=== PATIENT | female | born 1950 | race Caucasian/White ===

== ENCOUNTER 2024-01-27 18:13 | Emergency (ER) | payer MEDICARE, OTHER ==
[2024-01-27 18:26] VITALS: TEMP 98.3
--- NOTE | 2024-01-27 18:50 | ED ---
Upper Extremity HPI - General Chief Complaint: Extremity Injury, Upper Stated Complaint: fell L arm injury Time Seen by Provider: 01/27/24 18:33 Source: patient, RN notes reviewed Mode of arrival: ambulatory Limitations: no limitations - History of Present Illness Initial Comments: 73-year-old female presenting for left arm injury status post mechanical fall 1 hour ago. States she tripped over some boxes on the floor and landed on her left upper arm and felt immediate pain. States she did hit her head on the tile as well but denies loss of consciousness. States she has a small bruise on her left scientologist but denies any headache, nausea, vomiting. Denies other injuries. Takes daily aspirin however denies blood thinners. Rates her pain an 8 out of 10 currently. - Related Data Home Medications Medication Instructions Recorded Confirmed Olmesartan/Hydrochlorothiazide 1 each PO DAILY 03/13/15 03/13/15 [Benicar Hct 20-12.5 mg Tablet] Allergies Allergy/AdvReac Type Severity Reaction Status Date / Time erythromycin base Allergy Unknown Verified 03/13/15 10:23 latex Allergy Unknown Verified 03/13/15 10:23 monosodium glutamate [MSG] Allergy Unknown Verified 03/13/15 10:23 Penicillins Allergy Unknown Verified 03/13/15 10:23 Sulfa (Sulfonamide Allergy Unknown Verified 03/13/15 10:23 Antibiotics) tree nut [Nut] Allergy Unknown Verified 03/13/15 10:23 Review of Systems ROS Statement: Those systems with pertinent positive or pertinent negative responses have been documented in the HPI. ROS Other: All systems not noted in ROS Statement are negative. Past Medical History Past Medical History: Hypertension Additional Past Medical History / Comment(s): fractured arm History of Any Multi-Drug Resistant Organisms: None Reported Past Surgical History: Hysterectomy, Tonsillectomy Additional Past Surgical History / Comment(s): cystocel rectocel Past Psychological History: Anxiety Past Alcohol Use History: None Reported Past Drug Use History: None Reported General Exam Limitations: no limitations General appearance: alert, in no apparent distress Head exam: Present: atraumatic, normocephalic. Absent: normal inspection (Mild contusion over left scientologist with mild tenderness to palpation. No active bleeding) Eye exam: Present: normal appearance, PERRL, EOMI. Absent: scleral icterus, conjunctival injection, periorbital swelling ENT exam: Present: normal exam, mucous membranes moist, TM's normal bilaterally Neck exam: Present: normal inspection. Absent: tenderness, meningismus, lymphadenopathy Respiratory exam: Present: normal lung sounds bilaterally. Absent: respiratory distress, wheezes, rales, rhonchi, stridor Cardiovascular Exam: Present: regular rate, normal rhythm, normal heart sounds. Absent: systolic murmur, diastolic murmur, rubs, gallop, clicks Left Shoulder Exam: Present: normal inspection, full ROM. Absent: tenderness, swelling Upper Arm exam: Present: normal inspection, tenderness (Moderate tenderness over shaft of humerus). Absent: full ROM (Limited range of motion due to pain), swelling, laceration Elbow exam: Present: normal inspection, full ROM. Absent: tenderness, swelling Forearm Wrist exam: Present: normal inspection, full ROM. Absent: tenderness, swelling Hand Wrist exam: Present: normal inspection, full ROM. Absent: tenderness, swelling Vascular: Present: normal capillary refill. Absent: vascular compromise (Full sensation and radial pulses to bilateral upper extremities) Course Vital Signs 01/27/24 01/27/24 18:20 23:26 Temperature 98.3 F Pulse Rate 92 89 Respiratory 18 16 Rate Blood Pressure 156/77 139/71 O2 Sat by Pulse 98 98 Oximetry Medical Decision Making - Medical Decision Making Was pt. sent in by a medical professional or institution ([facility]IL[facility]ard, CLAIM PROCESSOR, urgent care, hospital, or longterm...) When possible be specific @ -No Did you speak to anyone other than the patient for history (EMS, parent, family, police, friend...)? What history was obtained from this source @ -No Did you review nursing and triage notes (agree or disagree)? Why? @ -I reviewed and agree with nursing and triage notes Were old charts reviewed (outside hosp., previous admission, EMS record, old EKG, old radiological studies, urgent care reports/EKG's, longterm records)? Report findings @ -No old charts were reviewed Differential Diagnosis (chest pain, altered mental status, abdominal pain women, abdominal pain men, vaginal bleeding, weakness, fever, dyspnea, syncope, headache, dizziness, GI bleed, back pain, seizure, CVA, palpatations, mental health, musculoskeletal)? @ -Differential Musculoskeletal Muscular strain, contusion, ligament sprain, fracture, arthritis, septic arthritis, bursitis, cellulitis, muscle spasm, nerve compression, DVT, arterial occlusion, herpes zoster, electrolyte abnormality, tumor.... This is not meant to be in all inclusive list EKG interpreted by me (3pts min.). @ -None X-rays interpreted by me (1pt min.). @ -X-ray of left humerus reveals acute fracture of the proximal left humerus with mild displacement, no dislocation CT interpreted by me (1pt min.). @ -None done U/S interpreted by me (1pt. min.). @ -None done What testing was considered but not performed or refused? (CT, X-rays, U/S, labs)? Why? @ -None What meds were considered but not given or refused? Why? @ -None Did you discuss the management of the patient with other professionals (professionals i.e. , PA, CLAIM PROCESSOR, lab, RT, psych nurse, licensed master social worker, lawyer real estate, teacher, fire control officer, vocational case manager)? Give summary @ -No Was smoking cessation discussed for >3mins.? @ -No Was critical care preformed (if so, how long)? @ -No Were there social determinants of health that impacted care today? How? (Homelessness, low income, unemployed, alcoholism, drug addiction, transportation, low edu. Level, literacy, decrease access to med. care, longterm, rehab)? @ -No Was there de-escalation of care discussed even if they declined (Discuss DNR or withdrawal of care, Hospice)? DNR status @ -No What co-morbidities impacted this encounter? (DM, HTN, Smoking, COPD, CAD, Cancer, CVA, ARF, Chemo, Hep., AIDS, mental health diagnosis, sleep apnea, morbid obesity)? @ -None Was patient admitted / discharged? Hospital course, mention meds given and route, prescriptions, significant lab abnormalities, going to OR and other pertinent info. @ -Patient was discharged. Patient was seen and evaluated for left upper arm injury after mechanical fall. Patient is neurovascularly intact. CT scan of head and neck performed due to patient hit head, revealed no acute intracranial abnormality or cervical fracture. X-ray of left shoulder reveals acute fracture of proximal left humerus with mild displacement but no dislocation. Patient given Tylenol threes for pain control. Patient was provided with sling. Discussed follow-up with Ortho in 1 to 3 days. Strict return/alarm symptoms discussed with patient in detail and she shows understanding and agrees to plan. Case discussed with my attending Dr. Garcia. Patient discharged in stable condition. Undiagnosed new problem with uncertain prognosis? @ -No Drug Therapy requiring intensive monitoring for toxicity (Heparin, Nitro, Insulin, Cardizem)? @ -No Were any procedures done? @ -No Diagnosis/symptom? @ -Acute fracture of proximal left humerus Acute, or Chronic, or Acute on Chronic? @ -Acute Uncomplicated (without systemic symptoms) or Complicated (systemic symptoms)? @ -Uncomplicated Side effects of treatment? @ -No Exacerbation, Progression, or Severe Exacerbation? @ -No Poses a threat to life or bodily function? How? (Chest pain, [place], [place], pneumonia, PE, COPD, DKA, ARF, appy, cholecystitis, CVA, Diverticulitis, Homicidal, Suicidal, threat to staff... and all critical care pts) @ -Low likelihood Disposition Clinical Impression: Fracture of humerus, proximal, left, closed Disposition: HOME SELF-CARE Condition: Stable Instructions (If sedation given, give patient instructions): Proximal Humerus Fracture (ED) Additional Instructions: Please follow-up with Ortho in 1 to 3 days. Please return to the Emergency Department if symptoms worsen or any other concerns. Is patient prescribed a controlled substance at d/c from ED?: No Referrals: Denton Zamora MD [Primary Care Provider] - 1-2 days Du Macias MD [STAFF PHYSICIAN] - 1-2 days Time of Disposition: 23:20
--- NOTE | 2024-01-27 21:19 | XR ---
EXAMINATION TYPE: XR humerus LT DATE OF EXAM: 01/27/2024 7:12 PM CLINICAL INDICATION:Female, 73 years old with history of left arm injury; [facility] COMPARISON: TECHNIQUE: 2 views left humerus FINDINGS: Acute fracture of the proximal humerus, transverse in configuration at the level of the radha gical neck. There is mild medial displacement of the major distal fragment, and slight longitudinal i mpaction. There is no dislocation. There is soft tissue swelling regional to the fracture. No radiopa que foreign body is seen. The distal humerus appears intact. IMPRESSION: Acute fracture proximal left humerus.
[2024-01-27] MEDS: ACETAMINOPHEN TAB 325 MG TAB PO STA (22:11)
--- NOTE | 2024-01-27 22:57 | CT ---
EXAMINATION TYPE: CT brain cspine wo con CT DLP: 1308.4 mGycm, Automated exposure control for dose reduction was used. DATE OF EXAM: 01/27/2024 9:05 PM COMPARISON: None. CLINICAL INDICATION:Female, 73 years old with history of pain; Fall. TECHNIQUE: Brain: Multiple axial CT images of the brain were obtained without IV contrast. Cspine: Axial CT images from the skull base to the inferior aspect of T2 we obtained without intraven ous contrast. Coronal and sagittal reformatted images were also reviewed. FINDINGS: Brain: Extra-axial spaces: No abnormal extra-axial fluid collections. Ventricular system: Within normal limits. Cerebral parenchyma: No increased attenuation to suggest acute intraparenchymal hemorrhage. The gra y-white matter interface appears maintained. No significant atrophy. White matter unremarkable by C T. Cerebellum: No acute abnormality. Mass effect: No evidence of mass effect or midline shift. Intracranial vasculature: Unremarkable Soft tissues: Normal. Visualized orbits: Orbital contents appear grossly intact. Calvarium/osseous structures: No evidence of calvarial fracture. Paranasal sinuses and mastoid air cells: Clear. MRI is more sensitive for detecting acute processes such as infarct, and may be considered if clinica lly warranted. Cervical spine: Fracture: None seen. Osseous structures, spinal canal/neural foramina: Generalized osteopenia. Mild degenerative changes. Mild canal and foraminal narrowing at the Osseous structures appear unremarkable. No significant bony canal or neural foraminal stenoses. Vertebral alignment: No traumatic malalignment. Preserved normal cervical lordosis. Neck soft tissues: No acute finding.. Calcifications noted involving the cervical carotid arteries mo stly in the bifurcation regions, and along the aortic arch. Other: Lung apices show no acute infiltrate or pneumothorax. Mild emphysematous changes. IMPRESSION: CT head: 1. No acute intracranial CT abnormality. CT cervical spine: 1. No evidence of acute cervical spine fracture or traumatic malalignment. 2. Mild cervical spondylosis.
[2024-01-27] MEDS: ACET/COD 300 MG/30 MG STARTER PACK 6 TAB BTL PO STA (23:21)
[2024-01-27 23:28] VITALS: BP 139/71; PULSE 89; RESP 16
== END 2024-01-27 23:26 | disposition home or self-care (01) ==
LOC: EC 18:13
DX: S42.202A Unspecified fracture of upper end of left humerus, initial encounter for closed fracture (principal); Z88.1 Allergy status to other antibiotic agents; Z91.040 Latex allergy status; Z88.0 Allergy status to penicillin; Z88.8 Allergy status to other drugs, medicaments and biological substances; W01.0XXA Fall on same level from slipping, tripping and stumbling without subsequent striking against object, initial encounter
CPT/HCPCS: 70450; 72125; 99284

== ENCOUNTER → 2024-01-31 | Outpatient (CLI) | payer MEDICARE, OTHER | END | disposition home or self-care (01) | LOC: LABWHC1 12:32 | PROVIDERS: ATTEND Orthopaedic Surgery | DX: E55.9 Vitamin D deficiency, unspecified (principal); M25.512 Pain in left shoulder; S42.222A 2-part displaced fracture of surgical neck of left humerus, initial encounter for closed fracture | CPT/HCPCS: 36415; 82306 ==